=== PATIENT | male | born 1970 | race Caucasian/White ===

== ENCOUNTER 2017-09-30 13:29 | Emergency (ER) | payer BC, OTHER ==
[~2017-09-30] VITALS: Ht 185.4 cm; Wt 136.1 kg
[2017-09-30 13:47] LABS: URINE BILIRUBIN NEGATIVE (Negative); URINE BLOOD NEGATIVE (Negative); URINE CLARITY CLEAR; URINE COLOR YELLOW; URINE GLUCOSE-RANDOM NEGATIVE (Negative); URINE KETONES NEGATIVE (Negative); URINE LEUKOCYTES-REFLEX NEGATIVE (Negative); URINE NITRITE-REFLEX NEGATIVE (Negative); URINE PROTEIN NEGATIVE (Negative); URINE SPECIFIC GRAVITY 1.015 (1.005-1.030); URINE UROBILINOGEN 0.2 E.U./dl (0.2-1.0)
[2017-09-30] MEDS ORDERED: CELEXA10 MG PO (13:47)
[2017-09-30] MEDS ORDERED: CETIRIZINE HCL5 MG PO (13:48)
[2017-09-30] MEDS ORDERED: LOTREL 10-20 M1 EACH PO (13:48)
[2017-09-30] MEDS ORDERED: FLONASE 0.05%50 MCG NASAL (13:49)
[2017-09-30 14:15] LABS: ABSOLUTE BASOPHILS 0.1 thou/uL (0.0-0.2); ABSOLUTE EOSINOPHILS 0.1 thou/uL (0.0-0.7); ABSOLUTE LYMPHOCYTES 1.4 thou/uL (0.8-5.3); ABSOLUTE MONOCYTES 0.3 thou/uL (0.0-1.2); ABSOLUTE NEUTROPHILS 4.9 thou/uL (1.6-8.1); BASOPHILS 0.8 %; EOSINOPHILS 1.7 %; HEMATOCRIT 46.6 % (42.0-52.0); HEMOGLOBIN 16.3 gm/dL (14.0-18.0); LYMPHOCYTES 20.4 %; MCH 29.3 pg (26.0-34.0); MCHC 34.9 g/dL (28.0-37.0); MCV 83.9 fL (80.0-100.0); MONOCYTES 5.1 %; MPV 9.5 fl. (7.2-11.1); NUCLEATED RBCS 0 /100WBC; PLATELET COUNT* 177 thou/uL (150-400); RBC 5.55 mil/uL (4.50-6.00); RDW-CV 14.1 % (10.5-14.5); WBC 6.8 thou/uL (4.0-11.0)
[2017-09-30 14:56] LABS: ALBUMIN 4.2 g/dL (3.4-5.0); ALKALINE PHOSPHATASE 89 U/L (46-116); ANION GAP 9 mmol/L (7-16); BUN 13 mg/dL (7-18); CALCIUM 8.7 mg/dL (8.5-10.1); CHLORIDE 105 mmol/L (98-107); CO2 26 mmol/L (21-32); GLUCOSE 145 mg/dL (70-99); POTASSIUM 4.1 mmol/L (3.5-5.1); SGOT 89 U/L (15-37); SGPT 101 U/L (30-65); SODIUM 140 mmol/L (136-145); TOTAL BILIRUBIN 0.7 mg/dL (<0.1-1.0); TOTAL PROTEIN 7.5 g/dL (6.4-8.2); TROPONIN-I LEVEL <0.06 ng/mL (<0.06)
[2017-09-30 15:05] VITALS: BP 139/91
--- NOTE | 2017-10-01 11:47 | EKG ---
[place] [address] ELECTROCARDIOGRAM REPORT Name: NARINDER,REGAN Room: [facility]#: [id number] Admission: 09/30/17 Attend Phys: Discharge: 09/30/17 Date of : 70 Report #: [id number] THIS REPORT FOR: //name// [facility] ED Test Date: 2017-09-30 Test Time: 13:45:13 Pat Name: REGAN BARCENAS Department: Room: Gender: M Aco Coordinator: : 1970 Requested By: Zina Lopez Order Number: [id number] MD: Ethan Gao Measurements Intervals [place] Rate: 76 P: 24 NE: 164 QRS: -10 QRSD: 87 T: 20 QT: 364 QTc: 410 Interpretive Statements Sinus rhythm Inferior infarct, old Anterior infarct, old No previous ECG available for comparison Electronically Signed On 10-01-2017 11:47:27 CDT by Ethan Gao [email or web address] <ELECTRONICALLY SIGNED> By: Ethan Gao MD, [facility] 10/01/17 1147 1345 1345 Ethan Gao MD, FAC /EPI
== END 2017-09-30 15:09 | disposition home or self-care (01) ==
LOC: M.ERS 13:29
PROVIDERS: Physician Assistant
DX: R10.11 Right upper quadrant pain (principal); E11.9 Type 2 diabetes mellitus without complications; I10 Essential (primary) hypertension; F41.9 Anxiety disorder, unspecified; F32.9 Major depressive disorder, single episode, unspecified